=== PATIENT | female | born 1980 | race Two or more races ===

== ENCOUNTER 2022-03-12 15:35 | Emergency (ER) | payer OTHER ==
[~2022-03-12] VITALS: Ht 167.6 cm; Wt 95.3 kg
[~2022-03-12 15:35] MED LIST: FOLIC ACID1 MG PO; GLUCOSAMINE CHO1 TAB PO; SYNTHROID100 MCG PO
[2022-03-12] MEDS ORDERED: TOPROL XL25 M1 (15:52)
== END 2022-03-12 19:26 | disposition home or self-care (01) ==
LOC: ER 15:35
DX: N39.0 Urinary tract infection, site not specified (principal); N83.202 Unspecified ovarian cyst, left side; D25.9 Leiomyoma of uterus, unspecified; Z88.8 Allergy status to other drugs, medicaments and biological substances

== ENCOUNTER 2024-03-18 06:00 | Day surgery (SDC) | payer OTHER ==
[~2024-03-18 06:00] MED LIST changes: +PEPCID AC10 MG; +PROTONIX20 MG; +TOPROL XL25 M1
[2024-03-18] MEDS ORDERED: LIDOCAINE HCL 1%/EPINEPHRINE 20ML VIAL IJ ONE (11:47)
[2024-03-18] MEDS ORDERED: BUPIVACAINE HCL/MPF 0.5% 30ML VIAL ONE (11:47)
[2024-03-18] MEDS ORDERED: FAMOTIDINE/PF 20 MG/2 ML VIAL ONE (11:57)
[2024-03-18] MEDS ORDERED: CEFAZOLIN SODIUM 1,000 MG VIAL ONE (12:23)
[2024-03-18] MEDS ORDERED: ONDANSETRON HCL 2 MG/ML VIAL ONE (15:31)
== END 2024-03-18 17:05 | disposition home or self-care (01) ==
LOC: CIR.AMB 06:00
PROVIDERS: ATTEND Surgery
DX: K42.9 Umbilical hernia without obstruction or gangrene (principal); Z88.8 Allergy status to other drugs, medicaments and biological substances
CPT/HCPCS: 49593; C1781